=== PATIENT | female | born 1950 | race Caucasian/White ===

== ENCOUNTER 2024-03-26 07:44 | Day surgery (SDC) | payer MEDICARE, BC ==
[~2024-03-26 07:44] MED LIST: Lactated Ringers 1,000 ML IV PRN
[2024-03-26] MEDS ORDERED: fentaNYL 100 MCG/2 ML SDV IV ONE (07:45)
[2024-03-26] MEDS ORDERED: Sodium Chloride 0.9% 10 ML Syringe IV ONE (07:45)
[2024-03-26] MEDS ORDERED: Midazolam 1 MG/ML 2 ML SDV IV ONE (07:45)
[2024-03-26] MEDS: Sodium Chloride 0.9% 10 ML Syringe FLUSH PRN (08:50)
[2024-03-26] MEDS: acetaZOLAMIDE 500 MG Cap.ER PO ONE (10:03)
== END 2024-03-26 10:40 | disposition home or self-care (01) ==
LOC: FB.SDS 07:44
PROVIDERS: ATTEND Ophthalmology
DX: H26.9 Unspecified cataract (principal); I10 Essential (primary) hypertension; M81.0 Age-related osteoporosis without current pathological fracture; E03.9 Hypothyroidism, unspecified; E66.01 Morbid (severe) obesity due to excess calories; K21.9 Gastro-esophageal reflux disease without esophagitis; Z79.899 Other long term (current) drug therapy
CPT/HCPCS: 00142; 99100; A9270-GY; J2250; J3010; V2632

== ENCOUNTER 2024-04-09 07:47 | Day surgery (SDC) | payer MEDICARE, BC ==
[2024-04-09] MEDS ORDERED: Midazolam 1 MG/ML 2 ML SDV IV ONE (07:48)
[2024-04-09] MEDS ORDERED: fentaNYL 100 MCG/2 ML SDV IV ONE (07:48)
[2024-04-09] MEDS: Sodium Chloride 0.9% 10 ML Syringe FLUSH PRN (08:38)
[2024-04-09] MEDS: acetaZOLAMIDE 500 MG Cap.ER PO ONE (09:32)
== END 2024-04-09 10:05 | disposition home or self-care (01) ==
LOC: FB.SDS 07:47
PROVIDERS: ATTEND Ophthalmology
DX: H25.9 Unspecified age-related cataract (principal); I10 Essential (primary) hypertension; M81.0 Age-related osteoporosis without current pathological fracture; E66.01 Morbid (severe) obesity due to excess calories; E03.9 Hypothyroidism, unspecified; K21.9 Gastro-esophageal reflux disease without esophagitis; Z79.899 Other long term (current) drug therapy; Z88.0 Allergy status to penicillin; Z68.39 Body mass index [BMI] 39.0-39.9, adult
CPT/HCPCS: 66984; A9270; J2250; J3010; V2632; 00142; 99100